=== PATIENT | female | born 1970 ===

== ENCOUNTER 2024-09-17 06:25 | Day surgery (SDC) | payer OTHER ==
[2024-09-17] MEDS ORDERED: FLUMAZENIL 0.5 MG/5 ML ML IV STA (09:25)
[2024-09-17] MEDS ORDERED: MIDAZOLAM HCL 2 MG/2 ML VIAL IV ONE (09:30)
[2024-09-17] MEDS ORDERED: DIPHENHYDRAMINE HCL 50 MG/ML VIAL 1ML IV ONE (09:30)
[2024-09-17] MEDS ORDERED: fentaNYL CITRATE 50 MCG/ML AMPUL IV PUSH ONE (09:30)
== END 2024-09-17 11:10 | disposition home or self-care (01) ==
LOC: AMB-ENDOS 06:25
PROVIDERS: ATTEND Internal Medicine
DX: K22.2 Esophageal obstruction (principal); D13.1 Benign neoplasm of stomach; R13.19 Other dysphagia